=== PATIENT | male | born 1940 | race Caucasian/White ===

== ENCOUNTER → 2018-10-04 | Outpatient (CLI) | payer MEDICARE, OTHER ==
--- NOTE | 2018-10-04 16:31 | RAD ---
CHEST PA LATERAL CLINICAL INDICATION: PACEMAKER INSERTION FOLLOWUP COMPARISON: None FINDINGS: Median sternotomy with aortic valve prosthesis. Left chest wall pacemaker is seen images leads projecting over the heart. Heart is mildly enlarged in size. Lungs are clear. No pneumothorax or pleural effusion. Visualized bony thorax is within normal limits. IMPRESSION: No pneumothorax. No acute pulmonary process. Electronically signed by: Austin Gómez DO (10/04/2018 4:28 PM) [facility]
== END | disposition home or self-care (01) ==
LOC: RAD 12:45
PROVIDERS: ATTEND Internal Medicine Cardiovascular Disease
DX: T82.190A Other mechanical complication of cardiac electrode, initial encounter (principal); I48.1 Persistent atrial fibrillation; Y83.8 Other surgical procedures as the cause of abnormal reaction of the patient, or of later complication, without mention of misadventure at the time of the procedure; Y92.89 Other specified places as the place of occurrence of the external cause
CPT/HCPCS: 71046